=== PATIENT | female | born 1970 | race Caucasian/White ===

== ENCOUNTER 2018-04-10 20:36 | Emergency (ER) | payer OTHER ==
[~2018-04-10] VITALS: Ht 154.9 cm; Wt 65.3 kg
[2018-04-10 20:54] VITALS: Ht 154.9 cm; Wt 65.3 kg
[2018-04-11 00:59] VITALS: BP 130/73
== END 2018-04-11 00:59 | disposition home or self-care (01) ==
LOC: ED 20:36
DX: L03.012 Cellulitis of left finger (principal); I10 Essential (primary) hypertension; Z88.6 Allergy status to analgesic agent; Z88.5 Allergy status to narcotic agent; Z88.1 Allergy status to other antibiotic agents
CPT/HCPCS: 90715; A4570; J0696; J1885; J2001